=== PATIENT | male | born 1980 ===

== ENCOUNTER 2017-12-22 12:38 | Emergency (ER) | payer OTHER ==
[2017-12-22 12:46] VITALS: BP 106/72; PULSE 84; RESP 16; TEMP 98.6; O2SAT 100
[2017-12-22] MEDS ORDERED: Albuterol-Ipratrop 3 mg / 0.5 (3 ml) UD INH STA (13:03)
--- NOTE | 2017-12-22 13:04 | ED PDOC ---
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 Cough is productive of green sputum. Patient has been diclofenac which has not helped his symptoms. PMD: none Past Medical History Reviewed: Historical Data, Nursing Documentation, Vital Signs Vital Signs: Last Vital Signs Temp 98.6 F 12/22/17 12:43 Pulse 84 12/22/17 12:43 Resp 16 12/22/17 12:43 BP 106/72 12/22/17 12:43 Pulse Ox 100 12/22/17 13:10 - Medical History PMH: No Chronic Diseases - Surgical History Surgical History: No Surg Hx - Family History Family History: States: No Known Family Hx - Living Arrangements Living Arrangements: With Family - Social History Current smoker - smoking cessation education provided: No Alcohol: None Drugs: Denies - Home Medications Home Medications: Ambulatory Orders Medication Instructions Recorded Albuterol HFA [Ventolin HFA 90 1 puff IH ASDIR #1 unit 12/22/17 mcg/actuation (8 g)] Benzonatate 200 mg PO TID PRN #20 capsule 12/22/17 Ibuprofen [Motrin] 600 mg PO Q6 PRN #15 tab 12/22/17 Oseltamivir Phosphate [Tamiflu] 75 mg PO BID #9 capsule 12/22/17 - Allergies Allergies/Adverse Reactions: Allergies Allergy/AdvReac Type Severity Reaction Status Date / Time No Known Allergies Allergy Verified 12/22/17 12:43 Review of Systems ROS Statement: Except As Marked, All Systems Reviewed And Found Negative Constitutional: Positive for: Fever (subjective), Chills, Other (body aches) ENT: Positive for: Throat Pain Respiratory: Positive for: Cough, Sputum (green) Gastrointestinal: Negative for: Nausea, Vomiting Genitourinary Male: Negative for: Dysuria Neurological: Positive for: Headache. Negative for: Dizziness Physical Exam - Reviewed Nursing Documentation Reviewed: Yes Vital Signs Reviewed: Yes - Physical Exam Appears: Positive for: Well, Non-toxic, No Acute Distress Head Exam: Positive for: ATRAUMATIC, NORMOCEPHALIC Skin: Positive for: Normal Color. Negative for: Rash Eye Exam: Positive for: EOMI, Normal appearance, PERRL ENT: Positive for: Pharyngeal Erythema Neck: Positive for: Normal, Painless ROM Cardiovascular/Chest: Positive for: Regular Rate, Rhythm. Negative for: Murmur Respiratory: Positive for: Decreased Breath Sounds. Negative for: Respiratory Distress Neurologic/Psych: Positive for: Alert, Oriented. Negative for: Motor/Sensory Deficits - ECG O2 Sat by Pulse Oximetry: 100 (RA) Pulse Ox Interpretation: Normal - Other Rad CXR X-Ray: Interpreted by Me, Viewed By Me X-Ray Interpretation: no acute infiltrate Nebulizer Treatments/Peak Flow - Duonebs Number of Bronchodilator Doses given?: 1 (duoneb) - Pre/Post Peak Flow Pre Treatment Peak Flow: 250 Post treatment Peak Flow: 270 - Steroid Treatment Steroid: Not Clinically Indicated - Clinical Response Clinical Response: Improved Medical Decision Making Medical Decision Making: Time: 12:58 Impression: 37 year old male with flu like symptoms Initial Plan: --Chest x-ray --Duoneb 3 ml INH --Motrin 600 mg PO --Tamiflu cap 75 mg PO --Throat cx --Nebulizer treatment --Peak flow pre/post --Rapid strep Will d/c with rx tamiflu, tessalon perles, motrin and ventolin inhaler. Advised fluids, rest and follow up with clinic in 2-3 days. Scribe Attestation: Documented by Jazmín Lane, acting as a scribe for Chen Coffey PA-C Provider Scribe Attestation: All medical record entries made by the Scribe were at my direction and personally dictated by me. I have reviewed the chart and agree that the record accurately reflects my personal performance of the history, physical exam, medical decision making, and the department course for this patient. I have also personally directed, reviewed, and agree with the discharge instructions and disposition. Disposition - Clinical Impression Clinical Impression: Influenza-like symptoms - Patient ED Disposition Is Patient to be Admitted: No Counseled Patient/Family Regarding: Studies Performed, Diagnosis, Need For Followup, Rx Given - Disposition Referrals: [facility] [Outside] Disposition: Routine/Home Disposition Time: 13:45 Condition: STABLE Additional Instructions: Take prescription medications as directed. Plenty of fluids and rest. Follow-up with clinic in 2-3 days. Prescriptions: Albuterol HFA [Ventolin HFA 90 mcg/actuation (8 g)] 1 puff IH ASDIR #1 unit Benzonatate 200 mg PO TID PRN #20 capsule PRN Reason: Cough Ibuprofen [Motrin] 600 mg PO Q6 PRN #15 tab PRN Reason: Pain, Moderate (4-7) Oseltamivir Phosphate [Tamiflu] 75 mg PO BID #9 capsule Instructions: Flu, Adult (DC) Forms: [employer] (G[place]adian) Print Language: SWEDISH
--- NOTE | 2017-12-22 13:54 | RAD ---
HISTORY: cough COMPARISON: No prior. TECHNIQUE: Chest PA and lateral FINDINGS: LUNGS: No active pulmonary disease. PLEURA: No significant pleural effusion identified. No pneumothorax apparent. CARDIOVASCULAR: Normal. OSSEOUS STRUCTURES: No significant abnormalities. VISUALIZED UPPER ABDOMEN: Normal. OTHER FINDINGS: None. IMPRESSION: No radiographic evidence of pneumonia.
== END 2017-12-22 13:56 | disposition home or self-care (01) ==
LOC: H.ER 12:38
DX: J11.1 Influenza due to unidentified influenza virus with other respiratory manifestations (principal)